=== PATIENT | male | born 2000 | race Caucasian/White ===

== ENCOUNTER 2021-01-16 17:58 | Emergency (ER) | payer OTHER ==
[2021-01-16] MEDS ORDERED: HYDROCODON-ACE1 EAC4 PO (19:55)
[2021-01-16] MEDS ORDERED: AUGMENTIN 875-1 EACH PO (19:55)
== END 2021-01-16 20:09 | disposition home or self-care (01) ==
LOC: ER1 17:58
DX: S91.332A Puncture wound without foreign body, left foot, initial encounter (principal); F17.210 Nicotine dependence, cigarettes, uncomplicated; Z23 Encounter for immunization; W34.00XA Accidental discharge from unspecified firearms or gun, initial encounter
CPT/HCPCS: 73630; 90471; 90715; 96374; 99283; J0690

== ENCOUNTER → 2021-03-28 | Outpatient (CLI) | payer OTHER ==
[~2021-03-28] MED LIST: AUGMENTIN 875-1 EACH PO; BACTRIM DS TAB1 EACH PO; CEPHALEXIN500 M1 PO; HYDROCODON-ACE1 EAC4 PO
== END ==
LOC: KOH-I 09:07
DX: M25.572 Pain in left ankle and joints of left foot (principal)
CPT/HCPCS: 73610; 73630

== ENCOUNTER 2021-04-16 16:06 | Emergency (ER) | payer SELFPAY ==
[~2021-04-16 16:06] MED LIST changes: -BACTRIM DS TAB1 EACH PO; -CEPHALEXIN500 M1 PO
[2021-04-16] MEDS ORDERED: BACTRIM DS TAB1 EACH PO (16:40)
[2021-04-16] MEDS ORDERED: CEPHALEXIN500 M1 PO (16:40)
== END 2021-04-16 17:03 | disposition home or self-care (01) ==
LOC: ER1 16:06
DX: L03.116 Cellulitis of left lower limb (principal); F17.200 Nicotine dependence, unspecified, uncomplicated
CPT/HCPCS: 99283